=== PATIENT | male | born 1965 | race Caucasian/White ===

== ENCOUNTER → 2016-03-12 | Outpatient (CLI) | payer MEDICARE, MEDICAID ==
--- NOTE | ~2016-03-12 | PR ---
[place], [place] PROGRESS NOTE NAME: MANUEL BYNUM UNIT #: [id number] ROOM: DOCTOR: ANGELA REGAN DPM BIRTHDATE: [birth year] DOS: 03/12/2016 SUBJECTIVE: The patient seen for plantar surface left great toe and plantar surface mid foot ulcer, patient had total contact cast applied. He has kept it on clean, dry, and intact. PHYSICAL EXAMINATION: Removal of the total contact cast the wounds appear to be healing nicely. There is a bit of callus formation which was debrided through dermis with a 15 blade. No bleeding noted. Once this was debrided both wounds remained open and very small areas of 0.1 cm x 0.1 cm x 0.1 cm. Left plantar foot and left great toe plantar area 0.1 cm x 0.1 cm x 0.1 cm. IMPRESSION: Grade 2 diabetic ulcerations, progressing well with current therapy. PLAN: 1. Evaluate. 2. Debridement was performed as described above. We will reapply total contact cast today. The patient is to keep this on clean, dry, and intact and reappoint next week for a nurse visit and if he looks good. This can be removed and the patient can be discharged for this complaint. ANGELA REGAN DPM CM:PNTRANS [phone] ANGELA REGAN DPM 03/12/16 1259 interface
== END ==
LOC: WOUNDCARE 03:11
DX: E10.621 Type 1 diabetes mellitus with foot ulcer (principal); L97.422 Non-pressure chronic ulcer of left heel and midfoot with fat layer exposed; L97.413 Non-pressure chronic ulcer of right heel and midfoot with necrosis of muscle; L84 Corns and callosities

== ENCOUNTER → 2016-03-19 | Outpatient (CLI) | payer MEDICARE, MEDICAID | LOC: WOUNDCARE 01:48 | DX: E10.621 Type 1 diabetes mellitus with foot ulcer (principal); L97.422 Non-pressure chronic ulcer of left heel and midfoot with fat layer exposed; L97.413 Non-pressure chronic ulcer of right heel and midfoot with necrosis of muscle ==

== ENCOUNTER → 2016-06-04 | Outpatient (CLI) | payer MEDICARE, MEDICAID ==
--- NOTE | ~2016-06-04 | PR ---
[place], [place] PROGRESS NOTE NAME: MANUEL BYNUM UNIT #: [id number] ROOM: DOCTOR: ANGELA REGAN DPM BIRTHDATE: [birth year] DOS: 06/04/2016 SUBJECTIVE: The patient was seen for followup of left great toe grade 2 diabetic ulcer. The patient has not been seen at the [facility] in 3 weeks. He has been using Puracol to the area and has no new complaints. PHYSICAL EXAMINATION: It is noted that the wound measures 0.2 x 0.2 x 0.3. There is an abundance of callus tissue and debris, which was debrided through to subcutaneous with a 15 blade. Minimal bleeding was controlled via pressure. No signs of infection. After debridement, the wound measures 0.2 x 0.2 x 0.2. Beefy red granulation tissue was noted at the wound base. IMPRESSION: Grade 2 diabetic ulceration, stable. PLAN: 1. Evaluate. 2. Debridement was performed. We will continue with Puracol and offloading bandage. The patient will be reappointed in 2 weeks at the [facility] for followup of this complaint. ANGELA REGAN DPM CM:LOREN [phone] ANGELA REGAN DPM 06/04/16 1547 interface
== END ==
LOC: WOUNDCARE 03:12
DX: E10.621 Type 1 diabetes mellitus with foot ulcer (principal); L97.521 Non-pressure chronic ulcer of other part of left foot limited to breakdown of skin; L84 Corns and callosities

== ENCOUNTER → 2016-06-18 | Outpatient (CLI) | payer MEDICARE, MEDICAID ==
--- NOTE | ~2016-06-18 | PR ---
[place], [place] PROGRESS NOTE [facility]: [id number] UNIT #: [id number] ROOM: DOCTOR: SONIA CalvinSENAIT BIRTHDATE: [birth year] DOS: 06/18/2016 CHIEF COMPLAINT: Followup of diabetic foot ulcer. This patient is a type 2 diabetic, insulin-dependent with neuropathy, who has been coming to the [facility] for several months now since the end of February. He has had a diabetic foot ulcer of the left great toe that appears to have improved in general. However, this week when staff states that they removed the dressing it was noted that there was some undermining and some purulence noted. He has a postop shoe that is using for offloading. He recalls having a problem with a posterior splint in the past that was used as offloading, which created a wound, so that is not an option at the present time. He does not believe that he used a contact cast; however, when I look at the graphics, it does look like he did have a contact cast at one point back in early March, but it was only used twice. He does not recall why this was discontinued, so there has been an issue with it. In any case, he reports slightly noticeable increase in drainage since last time. He has been using collagen. There is no pain, fevers or chills. He says his sugars are well controlled. He has a new insulin pump. He is getting blood work done by his entry examiner later this month. No other specific complaints are noted. OBJECTIVE: VITAL SIGNS: He is afebrile. His pulse is 88, respirations 18, blood pressure is 150/90. The wound is measuring slightly bigger. The length is measured at 2 x 0.1 x 0.3. There is abundant amount of callus. There is undermining noted at the 1 o'clock position of 0.3 maximum distance. This measurement of 2 is measuring an area where it has some discolored blood markings from repetitive trauma, but it is not actually opened. A debridement was done. The tissue removed was hyperkeratotic, nonviable tissue only and the undermined area was removed with forceps and scissors. The scalp 15 blade was used. There was no bleeding. Cetacaine spray was used for topical anesthesia. Timeout was conducted prior to the start of the procedure. Post-debridement measurements are as follows 0.5 x 0.3 x 0.25 in depth. There is some minimal erythema of the left great toe. A swab culture was taken. ASSESSMENT AND PLAN: Chronic diabetic foot ulcer that is stalled. Due to the purulence that was noted, I would recommend a silver dressing such as Aquacel Ag or Maxorb, whichever is available. Continue to use a bulky dressing. A culture was obtained. We will put the patient on empiric doxycycline for now and we will also repeat an x-ray. It has been a few months since he has had one. The patient is to follow up with Dr. Ballard next week and I would recommend that he see an snake charmer regarding offloading devices for the forefoot. Information was given to him regarding a company out in [place] that may be able to provide custom made offloading products for the patient. [place], [place] PROGRESS NOTE NAME: MANUEL BYNUM UNIT #: [id number] ROOM: DOCTOR: SENAIT SCOTT M.D. BIRTHDATE: [birth year] SENAIT SCOTT MD CM:LOREN [phone] SENAIT SCOTT M.D. 06/19/16 1258 interface
== END | disposition home or self-care (01) ==
LOC: WOUNDCARE 01:56 → RAD 01:56 → WOUNDCARE 07:44
DX: E10.21 Type 1 diabetes mellitus with diabetic nephropathy (principal); B96.89 Other specified bacterial agents as the cause of diseases classified elsewhere; M79.89 Other specified soft tissue disorders

== ENCOUNTER → 2016-06-25 | Outpatient (CLI) | payer MEDICARE, MEDICAID ==
--- NOTE | ~2016-06-25 | PR ---
[place], [place] PROGRESS NOTE NAME: MANUEL BYNUM UNIT #: [id number] ROOM: DOCTOR: ANGELA REGAN DPM BIRTHDATE: [birth year] DOS: 06/25/2016 SUBJECTIVE: The patient was seen for followup of plantar left toe ulceration, left great toe. The patient was seen last week by Dr. Lizama who took a culture and placed him on doxycycline. Culture did come back with bacteria susceptible to Bactrim, but not doxycycline. PHYSICAL EXAMINATION: It is noted that the area of ulceration is very, very small at 0.1 x 0.1 x 0.1. Callus tissue was debrided from around the periphery wound with 15 blade. Minimal bleeding was controlled with silver nitrate. No signs of infection, erythema, edema or drainage were noted from the area, but unfortunately, because of the positive culture, I will go ahead and switch his antibiotics from doxycycline to Bactrim. I gave him 20, to take 1 p.o. b.i.d. The patient will continue with the Maxorb dressings. IMPRESSION: Diabetic grade 2 ulceration, left foot, doing well. PLAN: 1. Evaluate. 2. Debridement was performed. We will use Maxorb and a bulky dry dressing to the area, continue to do every other day and reappoint at the [facility] Center in 1 week. ANGELA REGAN DPM CM:PNALBAN [phone] ANGELA REGAN DPM 06/25/16 2744 interface
== END ==
LOC: WOUNDCARE 04:21
DX: E10.621 Type 1 diabetes mellitus with foot ulcer (principal); L97.522 Non-pressure chronic ulcer of other part of left foot with fat layer exposed; L84 Corns and callosities

== ENCOUNTER → 2016-07-02 | Outpatient (CLI) | payer MEDICARE, MEDICAID ==
--- NOTE | ~2016-07-02 | PR ---
[place], [place] PROGRESS NOTE [id number] UNIT #: [id number] ROOM: DOCTOR: ANGELA REGAN DPM BIRTHDATE: [birth year] DOS: 07/02/2016 SUBJECTIVE: This is an established patient seen at [facility] for grade 2 diabetic ulceration plantar surface, left great toe. The patient presents today with no new complaints. PHYSICAL EXAMINATION: There is an area that is callus covered in the previous area of ulceration currently measures 0.1 x 0.1 x 0.1 cm. Callus tissue was debrided through dermis. No bleeding was noted. Once all callus tissue was removed, it is noted that the wound has healed. It is completely epithelialized, no open wound remains. IMPRESSION: Grade 2 diabetic ulceration, healed. PLAN: 1. Evaluate. 2. Debridement of callus tissue and debris through dermis. The patient will be discharged today with the healed wound. He is to watch the area. If any problems arise, he is to call the Wound Care Center immediately, but he will be discharged as healed today. ANGELA REGAN DPM CM:LOREN [phone] ANGELA REGAN DPM 07/02/162122 interface
== END ==
LOC: WOUNDCARE 01:05
DX: E10.621 Type 1 diabetes mellitus with foot ulcer (principal); L97.522 Non-pressure chronic ulcer of other part of left foot with fat layer exposed

== ENCOUNTER → 2016-08-13 | Outpatient (CLI) | payer MEDICARE, MEDICAID ==
--- NOTE | ~2016-08-13 | PR ---
[place], [place] PROGRESS NOTE NAME: MANUEL BYNUM UNIT #: [id number] ROOM: DOCTOR: ANGELA REGAN DPM BIRTHDATE: [birth year] DOS: 08/13/2016 SUBJECTIVE: The patient was seen at [facility] that healed. It has been over a month. He is back for recurrence of complaint on the plantar surface of the left great toe. The patient has been wearing his regular tennis shoes. He reports no trauma or incident which occurred. He notices gradually some redness and some callus tissue formation, so he called today for an evaluation. PHYSICAL EXAMINATION: It is noted that the plantar surface of the left great toe has callus tissue formation, measures 0.2 cm x 0.4 cm x 0.1 cm. Debridement was taken through to subcutaneous to remove devitalized tissue. Post-debridement measurements were 0.3 cm x 0.3 cm x 0.2 cm. No pus, odor or deep tracking was noted. There is some erythema, but it does ana, so I do not believe it to be cellulitis. No other signs of infection noted at this time. IMPRESSION: Grade 1 diabetic ulceration on plantar surface of left great toe. PLAN: 1. Evaluate. 2. Debridement was performed. We will notify our diabetic shoe distributor and have him seen next week, so that custom diabetic shoes with inserts can be made. In the meantime, I have asked him to bring his tennis shoes, so that I can modify his insoles to take pressure off this area. I believe with his diabetes, neuropathy and just the structure of his foot, this is going to be a chronic constant issue because of repetitive trauma. If we can offload this area appropriately, we can hopefully break the cycle of ulcerations. ANGELA REGAN DPM CM:PNTRANS 37 ANGELA REGAN DPM 08/13/162236 interface
== END ==
LOC: WOUNDCARE 03:27
DX: E10.621 Type 1 diabetes mellitus with foot ulcer (principal); L97.522 Non-pressure chronic ulcer of other part of left foot with fat layer exposed

== ENCOUNTER → 2016-08-20 | Outpatient (CLI) | payer MEDICARE, MEDICAID ==
--- NOTE | ~2016-08-20 | PR ---
[place], [place] PROGRESS NOTE NAME: MANUEL BYNUM UNIT #: [id number] ROOM: DOCTOR: ANGELA REGAN DPM BIRTHDATE: [birth year] DOS: 08/20/2016 SUBJECTIVE: The patient was seen for followup of great toe ulceration, plantar surface. The patient has been using the Puracol and a dry dressing to the area. He is ambulating in his regular shoes. He was supposed to see the diabetic shoe fitting company this week, but because of scheduling, he will not be seeing them in our center; hopefully, he will go to their facility. He was given their information. PHYSICAL EXAMINATION: It is noted that the area around the ulcer is very macerated. Pre-debridement measurements are 0.4 x 0.3 x 0.2 cm. Quite a bit of maceration was removed and debrided through to subcutaneous to remove all this devitalized tissue. Wound measurements subsequently were somewhat larger to the area. No drainage, odor, deep tracking or bleeding noted. The patient tolerated the procedure well. IMPRESSION: Grade 1 diabetic ulceration with repetitive microtrauma of the distal toe. PLAN: 1. Evaluate. 2. The patient is to go to seek diabetic shoe fitting at a facility instead of having it done here at the wound center. In the meantime, a cut out was placed into his shoe in order to offload the first ray. We will switch him to an alginate to the area used every day to prevent maceration. The patient will be followed next week at the wound care center for this complaint. ANGELA REGAN DPM CM:PNTRANS [phone] ANGELA REGAN DPM 08/21/16 0040 interface
== END ==
LOC: WOUNDCARE 02:04
DX: E10.621 Type 1 diabetes mellitus with foot ulcer (principal); L97.522 Non-pressure chronic ulcer of other part of left foot with fat layer exposed

== ENCOUNTER → 2016-09-13 | Outpatient (CLI) | payer MEDICARE, MEDICAID ==
[~2016-09-13] MED LIST: ALLERGY RELIEF10 M2 PO; AMITRIPTYLINE H75 MG PO; BACTRIM DS 8001 TA1 PO; FARXIGA10 M1 PO; GLYBURIDE5 MG PO; HUMALOG100 U/ML SC; METFORMIN HCL500 MG PO; MONTELUKAST SOD10 MG PO; NEURONTIN300 MG PO; ROSUVASTATIN CA40 MG PO; TRAMADOL HCL50 MG PO
== END ==
LOC: WOUNDCARE 03:09
DX: E10.621 Type 1 diabetes mellitus with foot ulcer (principal); L97.522 Non-pressure chronic ulcer of other part of left foot with fat layer exposed

== ENCOUNTER 2016-09-19 10:42 | Inpatient (IN) | payer MEDICARE, MEDICAID ==
[~2016-09-19] VITALS: Ht 182.8 cm; Wt 149.2 kg
[2016-09-19 10:48] VITALS: BP 151/85
[2016-09-19] MEDS ORDERED: METFORMIN HCL500 MG PO (10:50)
[2016-09-19] MEDS ORDERED: ALLERGY RELIEF10 M2 PO (10:51)
[2016-09-19] MEDS ORDERED: MONTELUKAST SOD10 MG PO (10:51)
[2016-09-19] MEDS ORDERED: GLYBURIDE5 MG PO (10:52)
[2016-09-19] MEDS ORDERED: HUMALOG100 U/ML SC (10:52)
[2016-09-19] MEDS ORDERED: AMITRIPTYLINE H75 MG PO (10:53)
[2016-09-19] MEDS ORDERED: NEURONTIN300 MG PO (10:53)
[2016-09-19] MEDS ORDERED: ROSUVASTATIN CA40 MG PO (10:54)
[2016-09-19] MEDS ORDERED: FARXIGA10 M1 PO (10:54)
[2016-09-19] MEDS ORDERED: TRAMADOL HCL50 MG PO (10:56)
[2016-09-19 11:38] LABS: BASO % 0.4 % (0.0-1.0); EOS # 0.2 10*3/uL (0.0-0.4); EOS % 2.5 % (1.0-4.0); HEMATOCRIT 44.9 % (42.0-52.0); HEMOGLOBIN 15.2 g/dl (14.0-18.0); LYMPH # 3.5 10*3/uL (1.3-4.4); MEAN CELL VOLUME 86.3 fl (80.0-94.0); MEAN CORPUSCULAR HGB 29.2 pg (27.0-31.0); MEAN CORPUSCULAR HGB CONC 33.9 g/dl (33.0-37.0); MEAN PLATELET VOLUME 9.8 fl (9.6-12.3); MONO # 0.6 10*3/uL (0.1-1.0); MONO % 6.8 % (3.0-9.0); NEUT # 4.8 10*3/uL (2.3-7.9); NEUT % 52.1 % (47.0-73.0); PLATELET COUNT AUTOMATED 256 10*3/uL (130-400); RED CELL DISTRI WIDTH 12.8 % (0-14.5); WHITE BLOOD COUNT 9.2 10*3/uL (4.8-10.8)
[2016-09-19 11:53] LABS: ALBUMIN 3.6 gm/dl (3.1-4.5); ALKALINE PHOSPHATASE 50 U/L (45-117); BILIRUBIN, TOTAL 0.6 mg/dl (0.2-1.0); BUN 21 mg/dl (7-24); CARBON DIOXIDE 28 mmol/L (21-32); CHLORIDE 104 mmol/L (98-107); EST GLOM FILT AFRICAN AMERICAN > 60 ml/min; GLUCOSE 183 mg/dL (65-99); POTASSIUM 4.3 mmol/L (3.5-5.1); SGOT/AST 19 IU/L (3-35); SGPT/ALT 34 U/L (12-78); SODIUM 140 mmol/L (136-145); TOTAL PROTEIN 7.7 gm/dL (6.4-8.2)
[2016-09-19 11:54] LABS: TROPONIN I < 0.015 ng/ml (<0.045)
[2016-09-19 12:00] VITALS: BP 155/85
[2016-09-19 12:15] LABS: BILIRUBIN NEGATIVE (NEGATIVE); BLOOD NEGATIVE (NEGATIVE); CLARITY CLEAR (CLEAR); COLOR YELLOW (YELLOW); GLUCOSE 3+ (NEGATIVE); KETONE NEGATIVE (NEGATIVE); LEUKO ESTERASE NEGATIVE (NEGATIVE); NITRITE NEGATIVE (NEGATIVE); PH 5.5 (5.0-9.0); PROTEIN NEGATIVE (NEGATIVE); UROBILINOGEN 0.2 E.U./dl (0.2-1.0)
[2016-09-19 12:37] LABS: URINE REFLEX COMMENT NO (NO); WBC 0-2 wbc/hpf (0-5)
[2016-09-19 13:34] LABS: LA>2 REFLEX 2 HR DRAW NOW
[2016-09-19 15:30] VITALS: BP 155/85
[2016-09-19 16:00] VITALS: BP 155/85
[2016-09-19 20:44] VITALS: BP 162/72
[2016-09-20] VITALS: BP 134/64
[2016-09-20 06:04] LABS: BASO # 0.1 10*3/uL (0.0-0.1); BASO % 0.6 % (0.0-1.0); EOS # 0.3 10*3/uL (0.0-0.4); EOS % 3.4 % (1.0-4.0); HEMATOCRIT 41.3 % (42.0-52.0); HEMOGLOBIN 13.8 g/dl (14.0-18.0); LYMPH # 3.5 10*3/uL (1.3-4.4); LYMPH % 43.8 % (27.0-41.0); MEAN CELL VOLUME 85.7 fl (80.0-94.0); MEAN CORPUSCULAR HGB 28.6 pg (27.0-31.0); MEAN CORPUSCULAR HGB CONC 33.4 g/dl (33.0-37.0); MEAN PLATELET VOLUME 9.9 fl (9.6-12.3); MONO # 0.8 10*3/uL (0.1-1.0); MONO % 9.6 % (3.0-9.0); NEUT # 3.4 10*3/uL (2.3-7.9); NEUT % 42.5 % (47.0-73.0); PLATELET COUNT AUTOMATED 227 10*3/uL (130-400); RED BLOOD COUNT 4.82 10*6/uL (4.50-5.90); RED CELL DISTRI WIDTH 12.5 % (0-14.5)
[2016-09-20 06:15] LABS: HEMOGLOBIN A1c 7.8 % (4.8-5.6)
[2016-09-20 06:22] LABS: PROTHROMBIN TIME 10.2 SECONDS (9.0-12.4)
[2016-09-20 06:27] LABS: ALBUMIN 3.2 gm/dl (3.1-4.5); ALKALINE PHOSPHATASE 42 U/L (45-117); BILIRUBIN, TOTAL 0.5 mg/dl (0.2-1.0); BUN 19 mg/dl (7-24); CARBON DIOXIDE 27 mmol/L (21-32); CHLORIDE 104 mmol/L (98-107); CHOLESTEROL 133 mg/dL (<200); EST GLOM FILT AFRICAN AMERICAN > 60 ml/min; FREE T4 0.91 ng/dl (0.76-1.46); GLUCOSE 145 mg/dL (65-99); HDL CHOLESTEROL 40 mg/dl (40-60); LDL CHOLESTEROL 60 mg/dL (9-159); MAGNESIUM 1.7 mg/dL (1.5-2.1); PHOSPHOROUS 3.5 mg/dL (2.5-4.9); POTASSIUM 3.9 mmol/L (3.5-5.1); SGOT/AST 17 IU/L (3-35); SGPT/ALT 28 U/L (12-78); SODIUM 139 mmol/L (136-145); TOTAL PROTEIN 6.5 gm/dL (6.4-8.2); TRIGLYCERIDES 167 mg/dl (<150); VLDL CHOLESTEROL 33 mg/dL (6-40)
[2016-09-20 06:54] LABS: VITAMIN D, 25-HYDROXY 33.8 ng/mL (30-100)
[2016-09-20 06:56] LABS: FOLIC ACID > 24.00 ng/mL (>5.38)
[2016-09-20 08:00] VITALS: BP 134/60
[2016-09-20 12:00] VITALS: BP 142/72
[2016-09-20 16:00] VITALS: BP 143/74
[2016-09-20 20:00] VITALS: BP 154/66
[2016-09-21] VITALS: BP 145/62
[2016-09-21 03:36] LABS: BASO % 0.5 % (0.0-1.0); EOS # 0.3 10*3/uL (0.0-0.4); EOS % 3.9 % (1.0-4.0); HEMATOCRIT 41.8 % (42.0-52.0); HEMOGLOBIN 14.2 g/dl (14.0-18.0); LYMPH # 3.1 10*3/uL (1.3-4.4); LYMPH % 40.3 % (27.0-41.0); MEAN CELL VOLUME 86.4 fl (80.0-94.0); MEAN CORPUSCULAR HGB 29.3 pg (27.0-31.0); MEAN PLATELET VOLUME 9.7 fl (9.6-12.3); MONO # 0.7 10*3/uL (0.1-1.0); MONO % 8.9 % (3.0-9.0); NEUT # 3.5 10*3/uL (2.3-7.9); NEUT % 46.3 % (47.0-73.0); PLATELET COUNT AUTOMATED 236 10*3/uL (130-400); RED BLOOD COUNT 4.84 10*6/uL (4.50-5.90); RED CELL DISTRI WIDTH 12.5 % (0-14.5); WHITE BLOOD COUNT 7.6 10*3/uL (4.8-10.8)
[2016-09-21 03:53] LABS: ALBUMIN 3.2 gm/dl (3.1-4.5); ALKALINE PHOSPHATASE 42 U/L (45-117); BILIRUBIN, TOTAL 0.4 mg/dl (0.2-1.0); BUN 18 mg/dl (7-24); CARBON DIOXIDE 33 mmol/L (21-32); CHLORIDE 103 mmol/L (98-107); EST GLOM FILT AFRICAN AMERICAN > 60 ml/min; GLUCOSE 187 mg/dL (65-99); POTASSIUM 4.7 mmol/L (3.5-5.1); SGOT/AST 16 IU/L (3-35); SGPT/ALT 29 U/L (12-78); SODIUM 139 mmol/L (136-145); TOTAL PROTEIN 6.9 gm/dL (6.4-8.2)
[2016-09-21 08:00] VITALS: BP 124/64
[2016-09-21] MEDS ORDERED: BACTRIM DS 8001 TA1 PO (11:16)
[2016-09-21 12:00] VITALS: BP 148/70
== END 2016-09-21 14:06 | disposition home or self-care (01) | DRG 638 ==
LOC: ED 10:42 → EDHOLD 14:24 → 5E 14:24
PROVIDERS: Hospitalist; Internal Medicine Nephrology; Registered Nurse
DX: E11.621 Type 2 diabetes mellitus with foot ulcer (principal); Z68.41 Body mass index [BMI] 40.0-44.9, adult; L97.529 Non-pressure chronic ulcer of other part of left foot with unspecified severity; E11.40 Type 2 diabetes mellitus with diabetic neuropathy, unspecified; E87.2 Acidosis; E44.0 Moderate protein-calorie malnutrition; E66.01 Morbid (severe) obesity due to excess calories; E78.5 Hyperlipidemia, unspecified; M76.60 Achilles tendinitis, unspecified leg; E11.65 Type 2 diabetes mellitus with hyperglycemia; Z79.4 Long term (current) use of insulin; Z79.899 Other long term (current) drug therapy; Z79.84 Long term (current) use of oral hypoglycemic drugs; Z83.2 Family history of diseases of the blood and blood-forming organs and certain disorders involving the immune mechanism; Z82.49 Family history of ischemic heart disease and other diseases of the circulatory system; Z83.3 Family history of diabetes mellitus; L03.032 Cellulitis of left toe; E11.628 Type 2 diabetes mellitus with other skin complications

== ENCOUNTER → 2016-09-19 | Outpatient (CLI) | payer MEDICARE, MEDICAID | LOC: WOUNDCARE 08:31 | DX: E11.622 Type 2 diabetes mellitus with other skin ulcer (principal); L97.522 Non-pressure chronic ulcer of other part of left foot with fat layer exposed; E11.40 Type 2 diabetes mellitus with diabetic neuropathy, unspecified ==

== ENCOUNTER → 2016-09-27 | Outpatient (CLI) | payer MEDICARE, MEDICAID ==
--- NOTE | ~2016-09-27 | PR ---
[place], [place] PROGRESS NOTE NAME: MANUEL BYNUM UNIT #: [id number] ROOM: DOCTOR: ANGELA REGAN DPM BIRTHDATE: [birth year] DOS: 09/27/2016 SUBJECTIVE: The patient was seen for followup of left great toe abscess. The patient was recently hospitalized last week for this complaint. He is seen following discharge. He has been using the silver alginate to the area. He is on p.o. Bactrim. He has no new complaints. PHYSICAL EXAMINATION: It is noted that the wound is open at 0.8 x 0.7 x 0.2. The callus tissue and debris and slough was debrided from the area with a 15 blade through the subcutaneous. The patient tolerated procedure well. Moderate bleeding was controlled with pressure. No signs of active discharge, odor or gross bacterial infection currently present. IMPRESSION: Grade 2 diabetic ulceration, left great toe. PLAN: 1. Evaluate. 2. Debridement was performed. 3. The patient will continue the Bactrim p.o. 4. He was given a prescription for Diflucan because he suffers with yeast infections, subsequently, from the antibiotic. 5. The patient was also given a return to work slip. I would like to see the patient back in 2 weeks. He is to continue to use a Maxorb Silver daily and call if any problems arise in the meantime. ANGELA REGAN DPM CM:PNTRANS [phone] ANGELA REGAN DPM 09/30/16 0921 interface
== END ==
LOC: WOUNDCARE 10:44
DX: E11.621 Type 2 diabetes mellitus with foot ulcer (principal); L97.522 Non-pressure chronic ulcer of other part of left foot with fat layer exposed

== ENCOUNTER → 2016-10-11 | Outpatient (CLI) | payer MEDICARE, MEDICAID ==
--- NOTE | ~2016-10-11 | PR ---
[place], [place] PROGRESS NOTE NAME: MANUEL BYNUM UNIT #: [id number] ROOM: DOCTOR: ANGELA REGAN DPM BIRTHDATE: [birth year] DOS: 10/11/2016 SUBJECTIVE: The patient seen for distal plantar great toe ulceration. The patient has been using Aquacel Ag to the area and a bulky dressing. He did get his new offloading diabetic shoes and he is wearing those currently. PHYSICAL EXAMINATION: It is noted that the ulceration is improved. It is measuring 1 cm x 0.8 cm x 0.2 cm. Callus tissue and debris was debrided through skin. The patient tolerated the procedure well. There was no bleeding noted. No signs of infection noted. Cellulitis or any complications at this time. IMPRESSION: Grade 1 diabetic ulceration on plantar surface, left great toe, progressing well. PLAN: 1. Evaluate. 2. Debridement was performed. The patient will continue with local wound care with silver alginate and a bulky dressing. He will use his offloading shoes that he just received for ambulation and I would like to see him back next week for this complaint. ANGELA REGAN DPM CM:LOREN [phone] ANGELA REGAN DPM 10/11/16 1304 interface
== END | disposition home or self-care (01) ==
LOC: WOUNDCARE 00:36
DX: E11.621 Type 2 diabetes mellitus with foot ulcer (principal); L97.522 Non-pressure chronic ulcer of other part of left foot with fat layer exposed; L84 Corns and callosities

== ENCOUNTER → 2016-11-01 | Outpatient (CLI) | payer MEDICARE, MEDICAID ==
--- NOTE | ~2016-11-01 | PR ---
[place], [place] PROGRESS NOTE NAME: MANUEL BYNUM UNIT #: [id number] ROOM: DOCTOR: ANGELA REGAN DPM BIRTHDATE: [birth year] DOS: 11/01/2016 SUBJECTIVE: The patient was seen for followup of plantar surface left great toe diabetic ulceration. The patient has not been seen in the Wound Care Center for at least 2-3 weeks. He states that he has been doing his dressing changes without incident and has been wearing his offloading diabetic shoes. He did have an injury on Friday while watching the clips. He did have ____ injury of the toe in question. PHYSICAL EXAMINATION: It is noted that the wound measures 0.4 x 0.4 x 0.1. A heavy amount of callus tissue and debris is noted within the wound. This area was debrided with 15 blade and pickups through subcutaneous tissue. There was bleeding noted, controlled with silver nitrate. No active infection. The wound was quite a bit larger, post-debridement at 1.1 x 1 x 0.2. IMPRESSION: Grade 1 diabetic ulceration, deteriorating due to lack of continued wound care and missed appointments. PLAN: 1. Evaluate. 2. Debridement was performed. We will continue the Puracol AG. I did add metatarsal elevation padding in his shoe in order to offload the area of the distal toe. I would like the patient to stay off his foot as much as possible and reappoint in 1 week and then try not to mix this appointment, is very imperative he sees us routinely for callus removal so the undermining does not continue and the wound does not continue to get larger. If there is any problem, patient is to call the Wound Care Center. ANGELA REGAN DPM CM:PNTRANS [phone] ANGELA REGAN DPM 11/02/16 0119 interface
== END | disposition home or self-care (01) ==
LOC: WOUNDCARE 03:01
DX: E11.621 Type 2 diabetes mellitus with foot ulcer (principal); L97.522 Non-pressure chronic ulcer of other part of left foot with fat layer exposed; L84 Corns and callosities

== ENCOUNTER → 2016-11-15 | Outpatient (CLI) | payer MEDICARE, MEDICAID ==
--- NOTE | ~2016-11-15 | PR ---
[place], [place] PROGRESS NOTE NAME: MANUEL BYNUM UNIT #: [id number] ROOM: DOCTOR: ANGELA REGAN DPM BIRTHDATE: [birth year] DOS: 11/15/2016 SUBJECTIVE: This is an established patient who has not been seen in 2 weeks for plantar surface left toe wound. He missed his appointment last week. He has a difficult work schedule and tends to oversleep. He has been using Puracol Ag to the area without any complaints. PHYSICAL EXAMINATION: It is noted that the wound measures 0.3 cm x 0.4 cm x 0.3 cm, much undermining and callus tissue was debrided with the 15 blade. There was some bleeding that was controlled with silver nitrate. The patient tolerated the procedure well. Debridement was performed to remove devitalized tissue and slough through subcutaneous. Post-debridement measurements were 0.3 x 0.4 x 0.1. IMPRESSION: Grade 1 diabetic ulcerations, stable. PLAN: 1. Evaluate. 2. Educated on the need to have these appointments be more frequent, weekly is preferable. We will now use Arglaes powder to the area daily. The patient will be reappointed for this complaint in 1 week. ANGELA REGAN DPM CM:PNTRANS [phone] ANGELA REGAN DPM 11/16/16 0002 interface
== END | disposition home or self-care (01) ==
LOC: WOUNDCARE 02:44
DX: E11.621 Type 2 diabetes mellitus with foot ulcer (principal); L97.522 Non-pressure chronic ulcer of other part of left foot with fat layer exposed; L84 Corns and callosities

== ENCOUNTER → 2016-11-27 | Outpatient (CLI) | payer MEDICARE, MEDICAID | END | disposition home or self-care (01) | LOC: WOUNDCARE 10:42 | DX: E11.621 Type 2 diabetes mellitus with foot ulcer (principal); L97.522 Non-pressure chronic ulcer of other part of left foot with fat layer exposed; E78.5 Hyperlipidemia, unspecified; Z87.891 Personal history of nicotine dependence; Z72.89 Other problems related to lifestyle ==

== ENCOUNTER → 2016-12-04 | Outpatient (CLI) | payer MEDICARE, MEDICAID | LOC: WOUNDCARE 02:29 | DX: E11.621 Type 2 diabetes mellitus with foot ulcer (principal); L97.522 Non-pressure chronic ulcer of other part of left foot with fat layer exposed; E78.5 Hyperlipidemia, unspecified; Z87.891 Personal history of nicotine dependence; Z72.89 Other problems related to lifestyle ==

== ENCOUNTER → 2016-12-11 | Outpatient (CLI) | payer MEDICARE, MEDICAID | END | disposition home or self-care (01) | LOC: WOUNDCARE 01:11 | DX: E11.621 Type 2 diabetes mellitus with foot ulcer (principal); L97.522 Non-pressure chronic ulcer of other part of left foot with fat layer exposed; E78.5 Hyperlipidemia, unspecified; Z87.891 Personal history of nicotine dependence; Z72.89 Other problems related to lifestyle ==

== ENCOUNTER → 2016-12-18 | Outpatient (CLI) | payer MEDICARE, MEDICAID | END | disposition home or self-care (01) | LOC: WOUNDCARE 03:59 | DX: E11.621 Type 2 diabetes mellitus with foot ulcer (principal); L97.522 Non-pressure chronic ulcer of other part of left foot with fat layer exposed; E78.5 Hyperlipidemia, unspecified ==

== ENCOUNTER → 2017-01-01 | Outpatient (CLI) | payer MEDICARE, MEDICAID | END | disposition home or self-care (01) | LOC: WOUNDCARE 04:36 | DX: E11.621 Type 2 diabetes mellitus with foot ulcer (principal); L97.522 Non-pressure chronic ulcer of other part of left foot with fat layer exposed; E11.69 Type 2 diabetes mellitus with other specified complication; E78.5 Hyperlipidemia, unspecified; Z87.891 Personal history of nicotine dependence; Z72.89 Other problems related to lifestyle ==

== ENCOUNTER → 2017-01-15 | Outpatient (CLI) | payer MEDICARE | END | disposition home or self-care (01) | LOC: WOUNDCARE 04:26 | DX: E11.621 Type 2 diabetes mellitus with foot ulcer (principal); L97.522 Non-pressure chronic ulcer of other part of left foot with fat layer exposed; E78.5 Hyperlipidemia, unspecified; Z87.891 Personal history of nicotine dependence; Z72.89 Other problems related to lifestyle ==

== ENCOUNTER → 2017-02-19 | Outpatient (CLI) | payer MEDICARE | END | disposition home or self-care (01) | LOC: WOUNDCARE 00:01 | DX: E11.621 Type 2 diabetes mellitus with foot ulcer (principal); L97.521 Non-pressure chronic ulcer of other part of left foot limited to breakdown of skin; E78.5 Hyperlipidemia, unspecified; Z87.891 Personal history of nicotine dependence; Z72.89 Other problems related to lifestyle ==

== ENCOUNTER → 2017-02-26 | Outpatient (CLI) | payer MEDICARE | END | disposition home or self-care (01) | LOC: WOUNDCARE 11:01 | DX: E11.621 Type 2 diabetes mellitus with foot ulcer (principal); L97.522 Non-pressure chronic ulcer of other part of left foot with fat layer exposed; E78.5 Hyperlipidemia, unspecified; Z87.891 Personal history of nicotine dependence; Z72.89 Other problems related to lifestyle ==

== ENCOUNTER → 2017-03-05 | Outpatient (CLI) | payer MEDICARE | END | disposition home or self-care (01) | LOC: WOUNDCARE 02-27 11:35 | DX: E11.621 Type 2 diabetes mellitus with foot ulcer (principal); L97.522 Non-pressure chronic ulcer of other part of left foot with fat layer exposed; E78.5 Hyperlipidemia, unspecified; Z87.891 Personal history of nicotine dependence; Z72.89 Other problems related to lifestyle ==

== ENCOUNTER → 2017-03-19 | Outpatient (CLI) | payer MEDICARE | LOC: WOUNDCARE 02:16 | DX: E11.621 Type 2 diabetes mellitus with foot ulcer (principal); L97.522 Non-pressure chronic ulcer of other part of left foot with fat layer exposed; Z87.891 Personal history of nicotine dependence; Z72.89 Other problems related to lifestyle ==

== ENCOUNTER → 2017-04-02 | Outpatient (CLI) | payer MEDICARE | END | disposition home or self-care (01) | LOC: WOUNDCARE 03:06 | DX: E11.621 Type 2 diabetes mellitus with foot ulcer (principal); L97.522 Non-pressure chronic ulcer of other part of left foot with fat layer exposed; E78.5 Hyperlipidemia, unspecified; M10.9 Gout, unspecified; Z87.891 Personal history of nicotine dependence; Z72.89 Other problems related to lifestyle ==

== ENCOUNTER → 2017-04-09 | Outpatient (CLI) | payer OTHER, MEDICARE | END | disposition home or self-care (01) | LOC: WOUNDCARE 00:46 | DX: E11.621 Type 2 diabetes mellitus with foot ulcer (principal); L97.522 Non-pressure chronic ulcer of other part of left foot with fat layer exposed; E78.5 Hyperlipidemia, unspecified; M10.9 Gout, unspecified; Z87.891 Personal history of nicotine dependence; Z72.89 Other problems related to lifestyle ==

== ENCOUNTER → 2017-04-16 | Outpatient (CLI) | payer MEDICARE | END | disposition home or self-care (01) | LOC: WOUNDCARE 03:18 | DX: E11.621 Type 2 diabetes mellitus with foot ulcer (principal); L97.522 Non-pressure chronic ulcer of other part of left foot with fat layer exposed; E78.5 Hyperlipidemia, unspecified; M10.9 Gout, unspecified; Z87.891 Personal history of nicotine dependence; Z72.89 Other problems related to lifestyle ==

== ENCOUNTER → 2017-05-07 | Outpatient (CLI) | payer MEDICARE | END | disposition home or self-care (01) | LOC: WOUNDCARE 10:39 | DX: E11.621 Type 2 diabetes mellitus with foot ulcer (principal); L97.521 Non-pressure chronic ulcer of other part of left foot limited to breakdown of skin; E78.5 Hyperlipidemia, unspecified; M10.9 Gout, unspecified; Z87.891 Personal history of nicotine dependence; Z72.89 Other problems related to lifestyle ==

== ENCOUNTER → 2017-05-14 | Outpatient (CLI) | payer MEDICARE | END | disposition home or self-care (01) | LOC: WOUNDCARE 01:36 | DX: E11.621 Type 2 diabetes mellitus with foot ulcer (principal); L97.521 Non-pressure chronic ulcer of other part of left foot limited to breakdown of skin; E78.5 Hyperlipidemia, unspecified; Z87.891 Personal history of nicotine dependence; Z72.89 Other problems related to lifestyle ==

== ENCOUNTER → 2017-06-11 | Outpatient (CLI) | payer MEDICARE | END | disposition home or self-care (01) | LOC: WOUNDCARE 05-23 11:22 | DX: E11.621 Type 2 diabetes mellitus with foot ulcer (principal); L97.521 Non-pressure chronic ulcer of other part of left foot limited to breakdown of skin; E78.5 Hyperlipidemia, unspecified; Z87.891 Personal history of nicotine dependence ==

== ENCOUNTER → 2017-06-18 | Outpatient (CLI) | payer OTHER, MEDICARE | END | disposition home or self-care (01) | LOC: WOUNDCARE 00:33 | DX: E11.621 Type 2 diabetes mellitus with foot ulcer (principal); L97.422 Non-pressure chronic ulcer of left heel and midfoot with fat layer exposed; E78.5 Hyperlipidemia, unspecified; M10.9 Gout, unspecified; Z87.891 Personal history of nicotine dependence ==

== ENCOUNTER → 2017-06-25 | Outpatient (CLI) | payer OTHER, MEDICARE | END | disposition home or self-care (01) | LOC: WOUNDCARE 01:46 | DX: E11.621 Type 2 diabetes mellitus with foot ulcer (principal); L97.422 Non-pressure chronic ulcer of left heel and midfoot with fat layer exposed; E78.5 Hyperlipidemia, unspecified; M10.9 Gout, unspecified; Z87.891 Personal history of nicotine dependence; Z68.42 Body mass index [BMI] 45.0-49.9, adult ==

== ENCOUNTER → 2017-07-02 | Outpatient (CLI) | payer OTHER, MEDICARE | END | disposition home or self-care (01) | LOC: WOUNDCARE 01:47 | DX: E11.621 Type 2 diabetes mellitus with foot ulcer (principal); L97.521 Non-pressure chronic ulcer of other part of left foot limited to breakdown of skin; L97.422 Non-pressure chronic ulcer of left heel and midfoot with fat layer exposed; L84 Corns and callosities; E78.5 Hyperlipidemia, unspecified; Z87.891 Personal history of nicotine dependence ==

== ENCOUNTER → 2017-07-09 | Outpatient (CLI) | payer OTHER, MEDICARE | END | disposition home or self-care (01) | LOC: WOUNDCARE 02:11 | DX: E11.621 Type 2 diabetes mellitus with foot ulcer (principal); L97.522 Non-pressure chronic ulcer of other part of left foot with fat layer exposed; E78.5 Hyperlipidemia, unspecified; Z87.891 Personal history of nicotine dependence ==

== ENCOUNTER → 2017-07-16 | Outpatient (CLI) | payer OTHER, MEDICARE | END | disposition home or self-care (01) | LOC: WOUNDCARE 03:47 | DX: E11.621 Type 2 diabetes mellitus with foot ulcer (principal); L97.422 Non-pressure chronic ulcer of left heel and midfoot with fat layer exposed; L97.521 Non-pressure chronic ulcer of other part of left foot limited to breakdown of skin; E78.5 Hyperlipidemia, unspecified; Z87.891 Personal history of nicotine dependence ==

== ENCOUNTER → 2017-07-23 | Outpatient (CLI) | payer OTHER, MEDICARE | END | disposition home or self-care (01) | LOC: WOUNDCARE 01:29 | DX: E11.621 Type 2 diabetes mellitus with foot ulcer (principal); L97.521 Non-pressure chronic ulcer of other part of left foot limited to breakdown of skin; L97.422 Non-pressure chronic ulcer of left heel and midfoot with fat layer exposed; L84 Corns and callosities; E78.5 Hyperlipidemia, unspecified; M10.9 Gout, unspecified; Z87.891 Personal history of nicotine dependence ==

== ENCOUNTER → 2017-07-30 | Outpatient (CLI) | payer OTHER, MEDICARE | END | disposition home or self-care (01) | LOC: WOUNDCARE 00:51 | DX: E11.621 Type 2 diabetes mellitus with foot ulcer (principal); L97.422 Non-pressure chronic ulcer of left heel and midfoot with fat layer exposed; E78.5 Hyperlipidemia, unspecified; M10.9 Gout, unspecified; Z87.891 Personal history of nicotine dependence ==

== ENCOUNTER → 2017-08-06 | Outpatient (CLI) | payer OTHER, MEDICARE | END | disposition home or self-care (01) | LOC: WOUNDCARE 02:59 | DX: E11.621 Type 2 diabetes mellitus with foot ulcer (principal); L97.521 Non-pressure chronic ulcer of other part of left foot limited to breakdown of skin; L97.422 Non-pressure chronic ulcer of left heel and midfoot with fat layer exposed; L84 Corns and callosities; M10.9 Gout, unspecified; I10 Essential (primary) hypertension; Z87.891 Personal history of nicotine dependence ==

== ENCOUNTER → 2017-08-13 | Outpatient (CLI) | payer OTHER, MEDICARE | END | disposition home or self-care (01) | LOC: WOUNDCARE 01:25 | DX: E11.621 Type 2 diabetes mellitus with foot ulcer (principal); L97.422 Non-pressure chronic ulcer of left heel and midfoot with fat layer exposed; E78.5 Hyperlipidemia, unspecified; Z87.891 Personal history of nicotine dependence ==

== ENCOUNTER → 2017-08-20 | Outpatient (CLI) | payer OTHER, MEDICARE | END | disposition home or self-care (01) | LOC: WOUNDCARE 00:27 | DX: E11.621 Type 2 diabetes mellitus with foot ulcer (principal); L97.521 Non-pressure chronic ulcer of other part of left foot limited to breakdown of skin; L97.422 Non-pressure chronic ulcer of left heel and midfoot with fat layer exposed; E78.5 Hyperlipidemia, unspecified; M10.9 Gout, unspecified; Z87.891 Personal history of nicotine dependence ==

== ENCOUNTER → 2017-08-27 | Outpatient (CLI) | payer OTHER, MEDICARE | END | disposition home or self-care (01) | LOC: WOUNDCARE 03:41 | DX: E11.621 Type 2 diabetes mellitus with foot ulcer (principal); L97.422 Non-pressure chronic ulcer of left heel and midfoot with fat layer exposed; E78.5 Hyperlipidemia, unspecified; M10.9 Gout, unspecified; Z87.891 Personal history of nicotine dependence ==

== ENCOUNTER → 2017-09-03 | Outpatient (CLI) | payer OTHER, MEDICARE | END | disposition home or self-care (01) | LOC: WOUNDCARE 03:12 | DX: E11.621 Type 2 diabetes mellitus with foot ulcer (principal); L97.422 Non-pressure chronic ulcer of left heel and midfoot with fat layer exposed; E78.5 Hyperlipidemia, unspecified; M10.9 Gout, unspecified; Z87.891 Personal history of nicotine dependence ==

== ENCOUNTER → 2017-09-17 | Outpatient (CLI) | payer OTHER, MEDICARE | END | disposition home or self-care (01) | LOC: WOUNDCARE 04:23 | DX: E11.621 Type 2 diabetes mellitus with foot ulcer (principal); L97.422 Non-pressure chronic ulcer of left heel and midfoot with fat layer exposed; E78.5 Hyperlipidemia, unspecified; M10.9 Gout, unspecified; Z87.891 Personal history of nicotine dependence ==

== ENCOUNTER → 2017-11-26 | Outpatient (CLI) | payer OTHER, MEDICARE | END | disposition home or self-care (01) | LOC: WOUNDCARE 00:41 | DX: E11.621 Type 2 diabetes mellitus with foot ulcer (principal); L97.422 Non-pressure chronic ulcer of left heel and midfoot with fat layer exposed; L97.521 Non-pressure chronic ulcer of other part of left foot limited to breakdown of skin; E78.5 Hyperlipidemia, unspecified; Z87.891 Personal history of nicotine dependence ==

== ENCOUNTER → 2017-12-03 | Outpatient (CLI) | payer OTHER, MEDICARE | END | disposition home or self-care (01) | LOC: WOUNDCARE 04:57 | DX: E11.621 Type 2 diabetes mellitus with foot ulcer (principal); L97.422 Non-pressure chronic ulcer of left heel and midfoot with fat layer exposed; L97.521 Non-pressure chronic ulcer of other part of left foot limited to breakdown of skin; E78.5 Hyperlipidemia, unspecified; Z87.891 Personal history of nicotine dependence ==

== ENCOUNTER → 2017-12-10 | Outpatient (CLI) | payer MEDICARE | END | disposition home or self-care (01) | LOC: WOUNDCARE 01:19 | DX: E11.621 Type 2 diabetes mellitus with foot ulcer (principal); L97.422 Non-pressure chronic ulcer of left heel and midfoot with fat layer exposed; E78.5 Hyperlipidemia, unspecified; L84 Corns and callosities; Z87.891 Personal history of nicotine dependence ==

== ENCOUNTER → 2017-12-16 | Outpatient (CLI) | payer MEDICARE | END | disposition home or self-care (01) | LOC: WOUNDCARE 02:20 | DX: E11.621 Type 2 diabetes mellitus with foot ulcer (principal); L97.422 Non-pressure chronic ulcer of left heel and midfoot with fat layer exposed; E78.5 Hyperlipidemia, unspecified; Z87.891 Personal history of nicotine dependence ==

== ENCOUNTER → 2017-12-29 | Outpatient (CLI) | payer MEDICARE | END | disposition home or self-care (01) | LOC: WOUNDCARE 11:50 | DX: E11.621 Type 2 diabetes mellitus with foot ulcer (principal); L97.521 Non-pressure chronic ulcer of other part of left foot limited to breakdown of skin; L97.422 Non-pressure chronic ulcer of left heel and midfoot with fat layer exposed; L84 Corns and callosities; E78.5 Hyperlipidemia, unspecified; F17.220 Nicotine dependence, chewing tobacco, uncomplicated ==

== ENCOUNTER → 2018-01-07 | Outpatient (CLI) | payer MEDICARE | END | disposition home or self-care (01) | LOC: WOUNDCARE 04:33 | DX: E11.621 Type 2 diabetes mellitus with foot ulcer (principal); L97.521 Non-pressure chronic ulcer of other part of left foot limited to breakdown of skin; L97.422 Non-pressure chronic ulcer of left heel and midfoot with fat layer exposed; L84 Corns and callosities; E78.5 Hyperlipidemia, unspecified; F17.220 Nicotine dependence, chewing tobacco, uncomplicated ==

== ENCOUNTER → 2018-01-14 | Outpatient (CLI) | payer MEDICARE | END | disposition home or self-care (01) | LOC: WOUNDCARE 01:50 | DX: E11.621 Type 2 diabetes mellitus with foot ulcer (principal); L97.521 Non-pressure chronic ulcer of other part of left foot limited to breakdown of skin; L97.422 Non-pressure chronic ulcer of left heel and midfoot with fat layer exposed; L84 Corns and callosities; E78.5 Hyperlipidemia, unspecified; F17.220 Nicotine dependence, chewing tobacco, uncomplicated ==

== ENCOUNTER → 2018-02-06 | Outpatient (CLI) | payer MEDICARE | END | disposition home or self-care (01) | LOC: WOUNDCARE 03:00 | DX: E11.621 Type 2 diabetes mellitus with foot ulcer (principal); L97.422 Non-pressure chronic ulcer of left heel and midfoot with fat layer exposed; L84 Corns and callosities; E78.5 Hyperlipidemia, unspecified; F17.220 Nicotine dependence, chewing tobacco, uncomplicated ==

== ENCOUNTER → 2018-02-17 | Outpatient (CLI) | payer MEDICARE | END | disposition home or self-care (01) | LOC: WOUNDCARE 02-13 01:01 | DX: E11.621 Type 2 diabetes mellitus with foot ulcer (principal); L97.528 Non-pressure chronic ulcer of other part of left foot with other specified severity; L97.422 Non-pressure chronic ulcer of left heel and midfoot with fat layer exposed; L84 Corns and callosities; E78.5 Hyperlipidemia, unspecified; F17.220 Nicotine dependence, chewing tobacco, uncomplicated ==